=== PATIENT | male | born 1985 | race Two or more races ===

== ENCOUNTER 2017-11-27 18:15 | Emergency (ER) | payer SELFPAY ==
[~2017-11-27] VITALS: Ht 180.3 cm; Wt 95.9 kg
[2017-11-27 18:35] VITALS: BP 120/76
== END 2017-11-28 04:44 | disposition left against medical advice (07) ==
LOC: ER 11-28 02:23
DX: R10.31 Right lower quadrant pain (principal)
CPT/HCPCS: 99281

== ENCOUNTER 2020-05-26 21:17 | Emergency (ER) | payer SELFPAY ==
[~2020-05-26] VITALS: Ht 175.3 cm; Wt 91.0 kg
[2020-05-26] MEDS ORDERED: KETOROLAC 30MG/ML VIAL IM ONE (22:30)
[2020-05-26] MEDS ORDERED: NAPR-1176 MT (22:58)
[2020-05-26 23:45] VITALS: BP 142/86
== END 2020-05-26 23:46 | disposition home or self-care (01) ==
LOC: ER 21:17
DX: S50.01XA Contusion of right elbow, initial encounter (principal); W23.0XXA Caught, crushed, jammed, or pinched between moving objects, initial encounter; Y35.891A Legal intervention involving other specified means, law enforcement official injured, initial encounter; Y93.89 Activity, other specified; Y92.488 Other paved roadways as the place of occurrence of the external cause; Y99.0 Civilian activity done for income or pay
CPT/HCPCS: 73080; 96372; 99283; J1885; Z7610